=== PATIENT | male | born 1985 | race Caucasian/White ===

== ENCOUNTER 2019-09-01 14:06 | Emergency (ER) | payer BC, OTHER ==
[~2019-09-01] VITALS: Ht 175.3 cm; Wt 77.0 kg
[2019-09-01] MEDS ORDERED: SODIUM CHLORIDE 0.9% 500 ML IV ONE (14:30)
[2019-09-01] MEDS ORDERED: METOCLOPRAMIDE HCL 10MG/2ML VIAL IV ONE (14:30)
[2019-09-01] MEDS ORDERED: DIPHENHYDRAMINE 50MG/ML VIAL IV ONE (14:30)
[2019-09-01 15:07] VITALS: BP 142/92
== END 2019-09-01 16:34 | disposition home or self-care (01) ==
LOC: ER 14:06
DX: G43.909 Migraine, unspecified, not intractable, without status migrainosus (principal)
CPT/HCPCS: 96374; 96375; 99284; J1200; J2765; J7040